=== PATIENT | female | born 1970 | race Caucasian/White ===

== ENCOUNTER → 2021-11-09 | Day surgery (SDC) | payer BC ==
[~2021-11-09] MED LIST: ARTHRITIS PAIN150 GM TP; BENAZEPRIL HCL40 MG PO; BUPROPION HCL100 MG PO; CYANOCOBAL1000 MCG/1 INJ; DOCUSATE SODIU100 MG PO; EMGALITY120 MG/1 M SQ; FENTANYL1 EACH TD; FLUOXETINE HCL40 MG PO; FUROSEMIDE40 MG PO; IMITREX100 MG PO; KLOR-CON M2020 MEQ PO; MEDROXYPROGESTE10 MG PO; MELOXICAM15 MG PO; MUPIROCIN30 GM TP; PREGABALIN100 MG PO; RETIN-A20 G1 TP; TOPIRAMATE ER150 MG PO; UBRELVY50 MG PO; VALACYCLOVIR1000 MG PO; VALTREX 500 MG500 MG PO; VITAMIN D310 MC4 PO; ZOVIRAX5 GM TP
== END | disposition home or self-care (01) ==
LOC: OR 08:30
DX: G57.01 Lesion of sciatic nerve, right lower limb (principal); Z79.1 Long term (current) use of non-steroidal anti-inflammatories (NSAID); Z79.899 Other long term (current) drug therapy; Z88.0 Allergy status to penicillin; Z88.1 Allergy status to other antibiotic agents; Z91.013 Allergy to seafood
CPT/HCPCS: 76000; J1040; Q9967